=== PATIENT | female | born 1950 | race Caucasian/White ===

== ENCOUNTER 2017-01-12 13:29 | Inpatient (IN) | payer OTHER ==
[~2017-01-12] VITALS: Ht 167.6 cm; Wt 42.1 kg
[~2017-01-12 13:29] MED LIST: ADVAIR HFA120 INHALA IH; CEFTIN500 MG PO; LEVOFLOXACIN750 MG PO; PREDNISONE20 MG PO; PREDNISONE5 MG PO; PROAIR HFA8.5 GM IH; PROVENTIL,2.5 MG/0.5 AEROSOL; PROVENTIL,2.5 MG/0.5 IH; SPIRIVA1 INHALATI IH; ZITHROMAX500 MG PO
[2017-01-12 15:00] LABS: EOSINOPHIL (%) 0.1 % (0-5); HEMATOCRIT 44.8 % (36.0-46.0); IMMATURE GRANULOCYTE (%) 0.7 % (0.0-0.7); IMMATURE GRANULOCYTE COUNT 0.1 K/uL; INSTRUMENT ABS NEUTROPHIL CT 14.9 K/uL; LYMPHOCYTE COUNT 0.8 K/uL (1.0-2.8); MCH 31.3 PG (29.0-34.0); MCV 94.7 FL (83-99); MEAN PLAT.VOLUME 9.2 uM^3 (9.5-12.4); MONOCYTE COUNT 0.8 K/uL (0-0.8); NEUTROPHIL (%) 89.3 % (45-76); NEUTROPHIL COUNT 14.9 K/uL (1.8-6.4); PLATELET COUNT 345 K/uL (156-360); RBC DIS.WIDTH-CV 13.2 % (11.8-14.6); RBC DIS.WIDTH-SD 46.7 % (39-53); RED BLOOD COUNT 4.73 M/uL (3.80-5.20); WHITE BLOOD COUNT 16.7 K/uL (4.1-10.2)
[2017-01-12 15:18] LABS: D-DIMER ELISA 0.32 mg/L FEU (< 0.57)
[2017-01-12 15:35] LABS: CHLORIDE 106 mEq/L (99-109); POTASSIUM 3.7 mEq/L (3.7-5.4); SODIUM 141 mEq/L (136-147)
[2017-01-12 15:38] LABS: GLUCOSE 105 mg/dL (70-99)
[2017-01-12 15:39] LABS: ANION GAP 13 MEQ/L (2-14)
[2017-01-12 15:40] LABS: TOTAL BILIRUBIN 0.5 mg/dL (0.0-1.0)
[2017-01-12 15:41] LABS: ALKALINE PHOSPHATASE 63 IU/L (3-129); GFR ESTIMATE (CALCULATED) > 59 mL/min/
[2017-01-12 15:42] LABS: UREA NITROGEN (BUN) 17 mg/dL (9-23)
[2017-01-12 15:44] LABS: TROP-I INTERPRETATION NEGATIVE; TROPONIN-I < 0.01 ng/mL (0.0-0.30)
[2017-01-12] MEDS ORDERED: ADVAIR 250/501 DISK IH (15:46)
[2017-01-12 15:51] LABS: BASE EXCESS -4.5 mEq/L (-3 to +3); BICARBONATE 21.1 mEq/L (22-26); CARBOXY HGB 7.8 % (0-5); PCO2 40 mm Hg (35-45); PO2 57 mm Hg (80-100); pH 7.33 (7.35-7.45)
[2017-01-12 15:52] LABS: COMMENTS - BLOOD GASES A+C+; DEVICE NC; O2 FLOW 2 L/MIN; SITE RR; TOTAL RESP RATE 21 resp/min
[2017-01-12 17:04] VITALS: BP 118/60
[2017-01-12 20:19] VITALS: BP 96/53
[2017-01-12 21:33] LABS: ADD MIUA? NO; BILIRUBIN NEGATIVE; BLOOD NEGATIVE; COLOR YELLOW ((YELLOW)); GLUCOSE (STRIP) >=500; KETONES 5; LEUKOCYTES NEGATIVE; NITRITE NEGATIVE; PROTEIN (STRIP) NEGATIVE; SPECIFIC GRAVITY 1.026 (1.000-1.030); UCUL ADDED? NO; UROBILINOGEN 0.2 MG/DL (0.2-1.0)
[2017-01-12 23:42] VITALS: BP 107/59
[2017-01-13 04:20] VITALS: BP 115/71
[2017-01-13 06:57] LABS: HEMATOCRIT 44.9 % (36.0-46.0); MCH 31.2 PG (29.0-34.0); MCHC 33.2 G/DL (30.0-36.0); MCV 94.1 FL (83-99); MEAN PLAT.VOLUME 9.1 uM^3 (9.5-12.4); PLATELET COUNT 372 K/uL (156-360); RBC DIS.WIDTH-CV 13.2 % (11.8-14.6); RBC DIS.WIDTH-SD 46.2 % (39-53); RED BLOOD COUNT 4.77 M/uL (3.80-5.20); WHITE BLOOD COUNT 16.4 K/uL (4.1-10.2)
[2017-01-13 07:19] LABS: ANION GAP 9 MEQ/L (2-14); CHLORIDE 107 MEQ/L (99-109); GFR ESTIMATE (CALCULATED) > 59 mL/min/; GLUCOSE 135 mg/dL (70-99); POTASSIUM 4.4 MEQ/L (3.7-5.4); SAMPLE HEMOLYSIS CHECK 0; SAMPLE ICTERIC CHECK 0; SAMPLE LIPEMIA CHECK 0; SODIUM 144 MEQ/L (136-147); UREA NITROGEN (BUN) 16 mg/dL (9-23)
[2017-01-13 07:53] VITALS: BP 120/61
[2017-01-13 13:07] VITALS: BP 128/65
[2017-01-13 16:57] VITALS: BP 111/62
[2017-01-13 20:00] VITALS: BP 102/57
[2017-01-14] VITALS (7 sets, daily range): BP systolic 106–114; BP diastolic 55–64
[2017-01-15 03:39] VITALS: BP 116/67
[2017-01-15 05:32] LABS: EOSINOPHIL (%) 0.1 % (0-5); IMMATURE GRANULOCYTE (%) 0.7 % (0.0-0.7); IMMATURE GRANULOCYTE COUNT 0.1 K/uL; INSTRUMENT ABS NEUTROPHIL CT 15.1 K/uL; LYMPHOCYTE COUNT 2.5 K/uL (1.0-2.8); MCH 30.9 PG (29.0-34.0); MCV 96.3 FL (83-99); MEAN PLAT.VOLUME 9.3 uM^3 (9.5-12.4); MONOCYTE (%) 8.4 % (3-12); MONOCYTE COUNT 1.6 K/uL (0-0.8); NEUTROPHIL COUNT 15.1 K/uL (1.8-6.4); PLATELET COUNT 369 K/uL (156-360); RBC DIS.WIDTH-CV 13.3 % (11.8-14.6); RBC DIS.WIDTH-SD 47.8 % (39-53); RED BLOOD COUNT 4.57 M/uL (3.80-5.20); WHITE BLOOD COUNT 19.3 K/uL (4.1-10.2)
[2017-01-15 06:37] LABS: ANION GAP 7 MEQ/L (2-14); CHLORIDE 104 MEQ/L (99-109); GFR ESTIMATE (CALCULATED) > 59 mL/min/; POTASSIUM 4.6 MEQ/L (3.7-5.4); SAMPLE HEMOLYSIS CHECK 0; SAMPLE ICTERIC CHECK 0; SAMPLE LIPEMIA CHECK 0; SODIUM 143 MEQ/L (136-147); UREA NITROGEN (BUN) 20 mg/dL (9-23)
[2017-01-15 06:38] LABS: GLUCOSE 68 mg/dL (70-99)
[2017-01-15 08:06] VITALS: BP 116/63
[2017-01-15 11:35] VITALS: BP 106/60
[2017-01-15] MEDS ORDERED: CEFTIN500 MG PO (12:06)
[2017-01-15] MEDS ORDERED: GUAIFENESI100 MG/5 M PO (12:07)
[2017-01-15] MEDS ORDERED: NICOTINE PATCH1 EAC2 TD (12:07)
[2017-01-15] MEDS ORDERED: PREDNISONE10 MG PO (12:08)
== END 2017-01-15 14:30 | disposition home or self-care (01) | DRG 190 ==
LOC: EME 13:29 → 4SOUTH 15:32 → EDOF 15:32 → 4SOUTH 16:44
PROVIDERS: Emergency Medicine; Hospitalist; Internal Medicine
DX: J44.0 Chronic obstructive pulmonary disease with (acute) lower respiratory infection (principal); J20.9 Acute bronchitis, unspecified; J44.1 Chronic obstructive pulmonary disease with (acute) exacerbation; J96.21 Acute and chronic respiratory failure with hypoxia; R64 Cachexia; Z68.1 Body mass index [BMI] 19.9 or less, adult; D72.829 Elevated white blood cell count, unspecified; T38.0X5A Adverse effect of glucocorticoids and synthetic analogues, initial encounter; I48.92 Unspecified atrial flutter; R91.1 Solitary pulmonary nodule; F17.210 Nicotine dependence, cigarettes, uncomplicated; Z66 Do not resuscitate
CPT/HCPCS: 36600; 71010; 71020; 71250; 80048; 80053; 81003; 82803; 84484; 85025; 85027; 85379; 87040; 93005; 94640; 94640 76; 94644; 94799; 99202; 99281; 99284; J0696; J1100; J1650; J2930; J3105; J7050; J7512; J7644

== ENCOUNTER 2017-07-10 10:00 | Observation (INO) | payer OTHER ==
[~2017-07-10] VITALS: Ht 167.6 cm; Wt 38.6 kg
[~2017-07-10 10:00] MED LIST changes: +ADVAIR 250/501 DISK IH; +GUAIFENESI100 MG/5 M PO; +NICOTINE PATCH1 EAC2 TD; +PREDNISONE10 MG PO
[2017-07-10 12:21] LABS: EOSINOPHIL (%) 0.7 % (0-5); EOSINOPHIL COUNT 0.1 K/uL (0-0.3); HEMATOCRIT 45.7 % (36.0-46.0); IMMATURE GRANULOCYTE (%) 0.3 % (0.0-0.7); INSTRUMENT ABS NEUTROPHIL CT 8.9 K/uL; LYMPHOCYTE COUNT 3.4 K/uL (1.0-2.8); MCH 31.8 PG (29.0-34.0); MCHC 33.9 G/DL (30.0-36.0); MCV 93.8 FL (83-99); MEAN PLAT.VOLUME 8.9 uM^3 (9.5-12.4); MONOCYTE (%) 8.4 % (3-12); MONOCYTE COUNT 1.1 K/uL (0-0.8); NEUTROPHIL (%) 65.4 % (45-76); NEUTROPHIL COUNT 8.9 K/uL (1.8-6.4); PLATELET COUNT 345 K/uL (156-360); RBC DIS.WIDTH-CV 13.2 % (11.8-14.6); RBC DIS.WIDTH-SD 45.2 % (39-53); RED BLOOD COUNT 4.87 M/uL (3.80-5.20); WHITE BLOOD COUNT 13.6 K/uL (4.1-10.2)
[2017-07-10 12:27] LABS: PROTHROMBIN TIME 11.5 SEC (10.2-12.9)
[2017-07-10 12:30] LABS: AMYLASE 82 IU/L (1-118); CHLORIDE 105 mEq/L (99-109); POTASSIUM 3.5 mEq/L (3.7-5.4); PTT 28.3 SEC (25-37); SODIUM 141 mEq/L (136-147)
[2017-07-10 12:32] LABS: GLUCOSE 118 mg/dL (70-99)
[2017-07-10 12:33] LABS: ANION GAP 14 MEQ/L (2-14)
[2017-07-10 12:35] LABS: SERUM ETHYL ALCOHOL < 10 mg/dL
[2017-07-10 12:36] LABS: GFR ESTIMATE (CALCULATED) > 59 mL/min/
[2017-07-10 12:37] LABS: UREA NITROGEN (BUN) 12 mg/dL (9-23)
[2017-07-10 12:38] LABS: POINT-OF-CARE METER ID UU13113747; POINT-OF-CARE USER ID NUTJLF39
[2017-07-10 12:39] LABS: LIPASE 25 U/L (1.0-51.0)
[2017-07-10 12:42] LABS: TROP-I INTERPRETATION NEGATIVE; TROPONIN-I < 0.01 ng/mL (0.0-0.30)
[2017-07-10] MEDS ORDERED: SPIRIVA1 INHALATI IH (13:42)
[2017-07-10 14:27] LABS: Estimated Average Glucose 111 mg/dL (70-123); HEMOGLOBIN A1c (GLYCOHEMOGLOB) 5.5 % HGB (Below 5.7)
[2017-07-10 14:39] LABS: TOTAL CHOLESTEROL 234 mg/dL (Desirable<200); TRIGLYCERIDES 100 MG/DL (Normal: <150)
[2017-07-10 14:40] LABS: HDL CHOLESTEROL 85 MG/DL (Desirable>=50); LDL CHOLESTEROL 129 mg/dL (Desirable<100); NON-HDL CHOLESTEROL 149 mg/dL (Desirable<160)
[2017-07-10 15:25] VITALS: BP 136/77
[2017-07-10 19:36] LABS: TROP-I INTERPRETATION NEGATIVE; TROPONIN-I < 0.01 ng/mL (0.0-0.30)
[2017-07-10 21:00] VITALS: BP 107/58
[2017-07-11 00:11] VITALS: BP 89/53
[2017-07-11 01:05] LABS: TROP-I INTERPRETATION NEGATIVE; TROPONIN-I < 0.01 ng/mL (0.0-0.30)
[2017-07-11 05:08] VITALS: BP 98/52
[2017-07-11 05:33] LABS: HEMATOCRIT 44.2 % (36.0-46.0); MCH 31.2 PG (29.0-34.0); MCHC 32.4 G/DL (30.0-36.0); MCV 96.3 FL (83-99); MEAN PLAT.VOLUME 9.2 uM^3 (9.5-12.4); PLATELET COUNT 315 K/uL (156-360); RBC DIS.WIDTH-CV 13.2 % (11.8-14.6); RBC DIS.WIDTH-SD 47.3 % (39-53); RED BLOOD COUNT 4.59 M/uL (3.80-5.20)
[2017-07-11] MEDS ORDERED: ATORVASTATIN CA40 MG PO (12:40)
== END 2017-07-11 14:30 | disposition home or self-care (01) ==
LOC: EME 10:00 → OPR 10:00 → EME 10:00 → EDOF 13:14 → 5WEST 13:14 → ENRESERV 13:32 → 5WEST 15:11
PROVIDERS: Emergency Medicine; Internal Medicine; Internal Medicine Pulmonary Disease
PROC: 0BBC8ZX Excision of Right Upper Lung Lobe, Via Natural or Artificial Opening Endoscopic, Diagnostic (ICD-10-PCS; principal; 2017-07-10)
DX: G45.9 Transient cerebral ischemic attack, unspecified (principal); C34.11 Malignant neoplasm of upper lobe, right bronchus or lung; J96.10 Chronic respiratory failure, unspecified whether with hypoxia or hypercapnia; J44.9 Chronic obstructive pulmonary disease, unspecified; Z99.81 Dependence on supplemental oxygen; F17.210 Nicotine dependence, cigarettes, uncomplicated
CPT/HCPCS: 70450; 70496; 70498; 70551; 71010; 77012; 80048; 80061; 81003; 82150; 82948; 83036; 83690; 84484; 85025; 85027; 85610; 85730; 86850; 86900; 86901; 88305; 88341 TC; 88342 TC; 93005; 93306; 94640; 94640 76; 94799; G0378; G0480; J2405; J3010

== ENCOUNTER 2018-03-02 00:20 | Inpatient (IN) | payer OTHER ==
[~2018-03-02] VITALS: Ht 154.9 cm; Wt 27.6 kg
[~2018-03-02 00:20] MED LIST changes: +ATORVASTATIN CA40 MG PO
[2018-03-02 00:50] LABS: BASOPHIL (%) 0.1 % (0-1); EOSINOPHIL (%) 0.1 % (0-5); HEMATOCRIT 45.6 % (36.0-46.0); HEMOGLOBIN 15.4 G/DL (11.9-15.5); IMMATURE GRANULOCYTE (%) 0.5 % (0.0-0.7); LYMPHOCYTE (%) 4.2 % (15-42); LYMPHOCYTE COUNT 0.8 K/uL (1.0-2.8); MCH 31.4 PG (29.0-34.0); MCHC 33.8 G/DL (30.0-36.0); MCV 93.1 FL (83-99); MONOCYTE (%) 5.5 % (3-12); NEUTROPHIL (%) 89.6 % (45-76); NEUTROPHIL COUNT 15.9 K/uL (1.8-6.4); PLATELET COUNT 360 K/uL (156-360); RBC DIS.WIDTH-CV 14.2 % (11.8-14.6); RBC DIS.WIDTH-SD 48.9 % (39-53); WHITE BLOOD COUNT 17.8 K/uL (4.1-10.2)
[2018-03-02 01:01] LABS: CHLORIDE 102 mEq/L (99-109); POTASSIUM 4.2 mEq/L (3.7-5.4); SODIUM 143 mEq/L (136-147)
[2018-03-02 01:02] LABS: MAGNESIUM 1.9 mg/dL (1.3-2.7)
[2018-03-02 01:03] LABS: GLUCOSE 59 mg/dL (70-99)
[2018-03-02 01:06] LABS: PTT 26.5 SEC (25-37)
[2018-03-02 01:07] LABS: CREATININE 0.7 mg/dL (0.6-1.3); GFR ESTIMATE (CALCULATED) > 59 mL/min/
[2018-03-02 01:08] LABS: UREA NITROGEN (BUN) 25 mg/dL (9-23)
[2018-03-02 01:11] LABS: TROP-I INTERPRETATION NEGATIVE; TROPONIN-I < 0.01 ng/mL (0.0-0.30)
[2018-03-02 03:55] LABS: ALBUMIN 3.8 g/dL (3.2-4.8)
[2018-03-02 03:59] LABS: TOTAL BILIRUBIN 0.9 mg/dL (0.0-1.0)
[2018-03-02 04:00] LABS: ALKALINE PHOSPHATASE 127 IU/L (3-129)
[2018-03-02 04:03] LABS: AST (GOT) 22 IU/L (2-34); DIRECT BILIRUBIN 0.4 mg/dL (0.0-0.3)
[2018-03-02 04:04] LABS: ALT (GPT) 13 IU/L (3-49)
[2018-03-02 05:09] VITALS: BP 103/57
[2018-03-02 06:40] LABS: APPEARANCE CLEAR ((CLEAR)); BILIRUBIN NEGATIVE; BLOOD NEGATIVE; COLOR YELLOW ((YELLOW)); GLUCOSE (STRIP) NEGATIVE; KETONES 20; LEUKOCYTES TRACE; NITRITE NEGATIVE; PROTEIN (STRIP) 30; UROBILINOGEN 0.2 MG/DL (0.2-1.0)
[2018-03-02 06:44] LABS: SPECIFIC GRAVITY > 1.060 (1.000-1.030)
[2018-03-02 06:59] LABS: BACTERIA NONE SEEN /HPF; EPITHELIAL CELLS RARE /HPF; HYALINE CASTS 20-30 /LPF; MUCUS TRACE /LPF; RED BLOOD CELLS 0-5 /HPF (0-5); UCUL ADDED? YES
[2018-03-02 07:23] VITALS: BP 99/66
[2018-03-02 08:25] LABS: THYROTROPIN (TSH) 2.3 MIU/L (0.4-5.5)
[2018-03-02] MEDS ORDERED: ADVAIR 500/501 DISK IH (09:49)
[2018-03-02] MEDS ORDERED: INCRUSE ELLI62.5 MCG IH (09:50)
[2018-03-02 09:55] LABS: HEMATOCRIT 37.2 % (36.0-46.0); HEMOGLOBIN 12.3 G/DL (11.9-15.5); MCH 31.5 PG (29.0-34.0); MCHC 33.1 G/DL (30.0-36.0); MCV 95.4 FL (83-99); RBC DIS.WIDTH-CV 14.3 % (11.8-14.6); RBC DIS.WIDTH-SD 49.1 % (39-53); WHITE BLOOD COUNT 14.3 K/uL (4.1-10.2)
[2018-03-02 10:16] LABS: HEMATOLOGY COMMENT 1 SN; PLAT.SUFFICIENCY ADEQUATE; PLATELET COUNT 278 K/uL (156-360)
[2018-03-02 10:19] LABS: CHLORIDE 102 MEQ/L (99-109); CREATININE 0.3 MG/DL (0.6-1.3); GFR ESTIMATE (CALCULATED) > 59 mL/min/; POTASSIUM 4.1 MEQ/L (3.7-5.4); SODIUM 143 MEQ/L (136-147); UREA NITROGEN (BUN) 22 mg/dL (9-23)
[2018-03-02 10:20] LABS: GLUCOSE 250 mg/dL (70-99)
[2018-03-02 11:16] VITALS: BP 97/64
[2018-03-02 15:41] VITALS: BP 97/54
[2018-03-02 19:17] VITALS: BP 91/53
[2018-03-02 23:19] VITALS: BP 109/61
[2018-03-03 03:26] VITALS: BP 100/58
[2018-03-03 05:50] LABS: BASOPHIL (%) 0.1 % (0-1); EOSINOPHIL (%) 0 % (0-5); HEMATOCRIT 34.3 % (36.0-46.0); HEMOGLOBIN 11.3 G/DL (11.9-15.5); IMMATURE GRANULOCYTE (%) 0.7 % (0.0-0.7); LYMPHOCYTE COUNT 0.3 K/uL (1.0-2.8); MCH 31.6 PG (29.0-34.0); MCHC 32.9 G/DL (30.0-36.0); MCV 95.8 FL (83-99); MONOCYTE (%) 3.1 % (3-12); MONOCYTE COUNT 0.4 K/uL (0-0.8); NEUTROPHIL (%) 94.1 % (45-76); PLATELET COUNT 280 K/uL (156-360); RBC DIS.WIDTH-CV 14.2 % (11.8-14.6); RBC DIS.WIDTH-SD 50.1 % (39-53); RED BLOOD COUNT 3.58 M/uL (3.80-5.20); WHITE BLOOD COUNT 12.7 K/uL (4.1-10.2)
[2018-03-03 06:15] LABS: CHLORIDE 107 MEQ/L (99-109); CREATININE 0.2 MG/DL (0.6-1.3); GFR ESTIMATE (CALCULATED) > 59 mL/min/; POTASSIUM 4.1 MEQ/L (3.7-5.4); SODIUM 143 MEQ/L (136-147); UREA NITROGEN (BUN) 12 mg/dL (9-23)
[2018-03-03 06:17] LABS: GLUCOSE 122 mg/dL (70-99)
[2018-03-03 07:30] VITALS: BP 107/71
[2018-03-03 12:31] LABS: MAGNESIUM 1.5 mg/dl (1.3-2.7); PHOSPHORUS 2.1 mg/dL (2.5-4.9)
[2018-03-03 15:11] VITALS: BP 123/62
[2018-03-04 00:12] VITALS: BP 103/57
[2018-03-04 05:58] LABS: HEMATOCRIT 33.5 % (36.0-46.0); HEMOGLOBIN 10.9 G/DL (11.9-15.5); MCH 31.2 PG (29.0-34.0); MCHC 32.5 G/DL (30.0-36.0); PLATELET COUNT 290 K/uL (156-360); RBC DIS.WIDTH-CV 14.3 % (11.8-14.6); RBC DIS.WIDTH-SD 50.4 % (39-53); RED BLOOD COUNT 3.49 M/uL (3.80-5.20); WHITE BLOOD COUNT 12.1 K/uL (4.1-10.2)
[2018-03-04 07:59] VITALS: BP 119/66
[2018-03-04 17:39] VITALS: BP 126/72
[2018-03-05 00:10] VITALS: BP 136/79
[2018-03-05 07:23] VITALS: BP 132/76
[2018-03-05 15:43] VITALS: BP 137/72
[2018-03-06 00:21] VITALS: BP 111/64
[2018-03-06 06:27] LABS: PREALBUMIN 13.9 mg/dL (10-40)
[2018-03-06 07:15] VITALS: BP 114/75
[2018-03-06 09:57] LABS: CHLORIDE 100 MEQ/L (99-109); CREATININE < 0.2 MG/DL (0.6-1.3); GFR ESTIMATE (CALCULATED) > 59 mL/min/; MAGNESIUM 1.6 mg/dl (1.3-2.7); POTASSIUM 3.3 MEQ/L (3.7-5.4); SODIUM 143 MEQ/L (136-147); UREA NITROGEN (BUN) 7 mg/dL (9-23)
[2018-03-06 10:00] LABS: GLUCOSE 69 mg/dL (70-99); PHOSPHORUS 2.5 mg/dL (2.5-4.9)
[2018-03-06 10:00] LABS: BASOPHIL (%) 0.1 % (0-1); EOSINOPHIL (%) 0.2 % (0-5); HEMATOCRIT 39.9 % (36.0-46.0); IMMATURE GRANULOCYTE (%) 0.7 % (0.0-0.7); LYMPHOCYTE (%) 5.6 % (15-42); LYMPHOCYTE COUNT 0.7 K/uL (1.0-2.8); MCH 31.4 PG (29.0-34.0); MCHC 33.6 G/DL (30.0-36.0); MCV 93.4 FL (83-99); MONOCYTE (%) 5.1 % (3-12); MONOCYTE COUNT 0.6 K/uL (0-0.8); NEUTROPHIL (%) 88.3 % (45-76); NEUTROPHIL COUNT 10.7 K/uL (1.8-6.4); PLATELET COUNT 365 K/uL (156-360); RBC DIS.WIDTH-CV 13.8 % (11.8-14.6); WHITE BLOOD COUNT 12.1 K/uL (4.1-10.2)
[2018-03-06 10:01] LABS: HEMOGLOBIN 13.4 G/DL (11.9-15.5); RED BLOOD COUNT 4.27 M/uL (3.80-5.20)
[2018-03-06] MEDS ORDERED: PREDNISONE20 MG PO (14:11)
[2018-03-06] MEDS ORDERED: AUGMENTIN875 MG PO (14:12)
[2018-03-06] MEDS ORDERED: Thiamine,Vitamin B1 PO (14:13)
[2018-03-06] MEDS ORDERED: ALPRAZOLAM0.25 M2 PO (14:13)
[2018-03-06 15:43] VITALS: BP 97/58
== END 2018-03-06 18:07 | DRG 871 ==
LOC: EME → EDBD 00:20 → EME 00:20 → EDOF 03:20 → 5SOUTH 03:20 → ENRESERV 03:42 → 5SOUTH 04:50
PROVIDERS: Emergency Medicine; Hospitalist; Nurse Practitioner; Physician Assistant; Physician Assistant Medical
DX: A41.9 Sepsis, unspecified organism (principal); J96.01 Acute respiratory failure with hypoxia; C34.91 Malignant neoplasm of unspecified part of right bronchus or lung; J18.0 Bronchopneumonia, unspecified organism; J44.0 Chronic obstructive pulmonary disease with (acute) lower respiratory infection; J44.1 Chronic obstructive pulmonary disease with (acute) exacerbation; R64 Cachexia; Z66 Do not resuscitate; Z86.73 Personal history of transient ischemic attack (TIA), and cerebral infarction without residual deficits; L89.150 Pressure ulcer of sacral region, unstageable; R32 Unspecified urinary incontinence; F17.210 Nicotine dependence, cigarettes, uncomplicated; F41.9 Anxiety disorder, unspecified
CPT/HCPCS: 71045; 71275; 80048; 80048 91; 80076; 81003; 83605; 83735; 84100; 84134; 84443; 84484; 85025; 85027; 85379; 85610; 85730; 87040; 87070; 87086; 87205; 87449; 93005; 94002; 94640; 94799; 99281; 99285; J0295; J0456; J1644; J1956; J2060; J2920; J2930; J7030; J7050; J7512